=== PATIENT | female | born 1975 | race Caucasian/White ===

== ENCOUNTER 2017-06-25 17:29 | Inpatient (IN) ==
[2017-06-25 18:17] LABS: MANUAL DIFF NEEDED? NO
[2017-06-25 18:19] LABS: BASO% 0.3 % (0.0-0.8); EOS% 1.1 % (0.0-10.0); HEMATOCRIT 38.6 % (37.0-47.0); HEMOGLOBIN 12.6 g/dL (12.0-16.0); IMM GRAN# 0.02 X1000 (0.0-0.04); IMM GRAN% 0.2 % (0.0-0.5); LYMPH# 1.94 X1000 (1.2-3.4); LYMPH% 21.6 % (20.5-51.1); MCH 30.1 PG (27-31); MCHC 32.6 g/dL (33-37); MCV 92.3 FL (81-99); MONO# 0.66 X1000 (0.11-0.59); MONO% 7.3 % (1.7-9.3); MPV 9.4 FL (7.4-10.4); NEUT% 69.5 % (42.2-75.2); PLT 295 X1000 (130-400); RBC 4.18 XMIL (4.2-5.4)
[2017-06-25 18:24] LABS: URINE SOURCE CLEAN CATCH
[2017-06-25 18:28] LABS: BILIRUBIN URINE NEGATIVE (NEGATIVE); BLOOD URINE 4+ (NEGATIVE); CLARITY SL. CLOUDY (CLEAR); COLOR YELLOW; GLUCOSE URINE NEGATIVE (NEGATIVE); LEUKOCYTES URINE 2+ (NEGATIVE); NITRITE URINE NEGATIVE (NEGATIVE); PH URINE 6.5; PROTEIN URINE TRACE mg/dL (NEGATIVE); SP GRAVITY URINE 1.025; UROBILINOGEN URINE NORMAL
[2017-06-25 18:37] LABS: URINE CAST NONE SEEN /LPF; URINE CRYSTAL CA OXALATE PRESENT /HPF; URINE CULTURE PL NEEDED? YES; URINE EPITHELIAL CELLS >10 /HPF (<10); URINE RBC 20-40 /HPF (<10)
[2017-06-25 18:59] LABS: AGAP 9; ALBUMIN 4.2 g/dL (3.5-5.0); ALKALINE PHOSPHATASE 76 U/L (32-104); AMYLASE 53 U/L (20-200); BUN 15 mg/dL (8-22); CALCIUM 8.9 mg/dL (8.8-10.2); CHLORIDE 103 mmol/L (98-107); COSMO 282; GOT 12 U/L (10-30); GPT 9 U/L (10-36); LIPASE 43 U/L (13-60); POTASSIUM 3.8 mmol/L (3.5-5.1); SODIUM 141 mmol/L (136-145); TCO2 29 mmol/L (25-35); TOTAL PROTEIN 7.3 g/dL (6.3-8.3)
[2017-06-25] MEDS ORDERED: ROCEPHIN 1 GM in NS 50 ML IV ONE (21:56)
[2017-06-26] MEDS ORDERED: NS 1,000 ML IV ONE (00:32)
[2017-06-26] MEDS ORDERED: TYLENOL PO PRN ×2 (00:32→10:41)
[2017-06-26] MEDS ORDERED: ZOFRAN IV PRN (00:32)
--- NOTE | 2017-06-26 10:02 | Diag Imaging Result Doc PS360 ---
CT ANGIOGRM/PULMONARY ARTERIES - 06/25/2017 INDICATION: Possible PE TECHNIQUE: Axial CT images were obtained after administering intravenous contrast. Coronal MIP images were generated. A CT dose reduction protocol was used. COMPARISON: 04/16/2011 FINDINGS: There is no pulmonary embolism. Heart and great vessels are normal. The lungs are clear. Upper abdominal images are normal. Bones are intact. IMPRESSION: Negative exam. Electronically signed by Darek Oneil 06/26/2017 9:59 AM
--- NOTE | 2017-06-26 10:03 | Diag Imaging Result Doc PS360 ---
CT RENAL STONE SEARCH - 06/25/2017 INDICATION: Abdominal pain TECHNIQUE: A CT dose reduction protocol was used. COMPARISON: None FINDINGS: There are cholecystectomy clips. No radiodense renal stones. No hydronephrosis or hydroureter. There is a small right renal cyst. Otherwise abdominal organs are normal. The uterus is absent. Urinary bladder and rectum are normal. No bowel obstruction or inflammation. Bones are intact. IMPRESSION: Negative exam. Electronically signed by Darek Oneil 06/26/2017 10:01 AM
[2017-06-26] MEDS: ZOSYN 3.375 GM in NS 50 ML IV SCH ×3 (12:23→22:10)
[2017-06-26] MEDS: ZOFRAN IV PRN ×2 (12:23→17:38)
[2017-06-26] MEDS: DOXYCYCLINE 100 MG in NS 250 ML IV SCH (13:19)
[2017-06-26] MEDS ORDERED: NORCO-5 PO PRN (18:42)
[2017-06-26] MEDS: TORADOL IV SCH (19:01)
[2017-06-26] MEDS ORDERED: DESYREL PO SCH (21:00)
[2017-06-27] MEDS: DOXYCYCLINE 100 MG in NS 250 ML IV SCH ×2 (00:27→11:56)
[2017-06-27] MEDS: TORADOL IV SCH ×4 (00:27→11:56)
[2017-06-27] MEDS: ZOSYN 3.375 GM in NS 50 ML IV SCH ×2 (05:33→09:54)
[2017-06-27 12:05] VITALS: BP 104/58
[2017-06-27] MEDS: ZOFRAN IV PRN (13:31)
== END 2017-06-27 15:30 | disposition home or self-care (01) ==
LOC: P.ED 17:29 → P.MEDSURG 06-26 00:57
PROVIDERS: ADMIT Family Medicine; ATTEND Family Medicine